=== PATIENT | female | born 2000 | race Caucasian/White ===

== ENCOUNTER 2021-06-25 14:43 | Observation (INO) | payer OTHER ==
[~2021-06-25] VITALS: Ht 154.9 cm; Wt 63.5 kg
[2021-06-26] MEDS ORDERED: fentaNYL CITRATE/PF 100 MCG/2 ML AMP ONE ×2 (02:10→07:26)
[2021-06-26] MEDS ORDERED: ROPIVACAINE HCL/PF 0.2% 0 ML ONE ×2 (02:11→07:26)
[2021-06-26] MEDS ORDERED: IBUPROFEN 600 MG TABLET ONE (17:57)
== END 2021-06-25 18:13 | disposition home or self-care (01) ==
LOC: SPU 14:43 → UNDODISOB 16:55
PROVIDERS: ADMIT Obstetrics & Gynecology; ATTEND Specialist
DX: O62.9 Abnormality of forces of labor, unspecified (principal); Z3A.38 38 weeks gestation of pregnancy
CPT/HCPCS: 81002; G0378; J3010

== ENCOUNTER 2021-06-26 00:43 | Inpatient (IN) | payer OTHER ==
[~2021-06-26] VITALS: Ht 154.9 cm; Wt 63.5 kg
[2021-06-26] MEDS ORDERED: AMPICILLIN SODIUM 2 GM in NS 100 ML IV ONE (01:30)
[2021-06-26] MEDS ORDERED: LR 1,000 ML IV ONE (01:30)
[2021-06-26] MEDS ORDERED: OXYTOCIN/0.9 % SODIUM CHLORIDE 1,000 ML IV SCH ×2 (01:30→16:45)
[2021-06-26] MEDS ORDERED: MORPHINE SULFATE 10 MG/ML VIAL IVP PRN (01:30)
[2021-06-26] MEDS ORDERED: NALOXONE HCL 0.4 MG/ML AMP (NARCAN) IVP PRN (01:30)
[2021-06-26] MEDS ORDERED: TERBUTALINE SULFATE 1 MG/ML VIAL SUBCUT ONE (01:30)
[2021-06-26 01:33] VITALS: BP_SYST 114
[2021-06-26 01:50] LABS: BASOPHILS # (AUTO) 0.1 K/uL (0.0-0.2); BASOPHILS % (AUTO) 0.4 % (0.0-2.0); HEMATOCRIT 35.6 % (36-48); HEMOGLOBIN 11.7 g/dL (12.0-16.0); LYMPHOCYTES # (AUTO) 1.9 K/uL (1.0-5.5); LYMPHOCYTES % (AUTO) 10.5 % (20.5-51.5); MEAN CORPUSCULAR HEMOGLOBIN 29 pg (27-31); MEAN CORPUSCULAR HGB CONC 33 % (32-36); MEAN CORPUSCULAR VOLUME 87 fL (79.0-98.0); MONOCYTES % (AUTO) 5.6 % (1.7-9.3); NEUTROPHILS # (AUTO) 14.8 K/uL (1.8-7.7); NEUTROPHILS % (AUTO) 83.5 % (40.0-70.0); PLATELET COUNT (AUTO) 219 K/uL (130-430); RED BLOOD CELL COUNT(AUTO) 4.08 MIL/uL (4.2-6.2); RED CELL DISTRIBUTION WIDTH 16.5 % (9.0-15.0); WHITE BLOOD COUNT (AUTO) 17.8 K/uL (4.5-11.0)
[2021-06-26] MEDS ORDERED: LR 500 ML IV ONE (03:00)
[2021-06-26] MEDS ORDERED: FENT2mCg/mL-ROPIVA0.2%/NS EPID 200 ML EP SCH (03:00)
[2021-06-26] MEDS ORDERED: AMPICILLIN SODIUM 2 GM VIAL ONE (03:11)
[2021-06-26] MEDS: LR 1,000 ML IV SCH ×2 (03:19→09:21)
[2021-06-26] MEDS ORDERED: ONDANSETRON HCL 4 MG/2 ML VIAL IVP PRN (05:30)
[2021-06-26] MEDS ORDERED: AMPICILLIN SODIUM 1 GM VIAL ONE (06:36)
[2021-06-26] MEDS ORDERED: ROPIVACAINE HCL/PF 0.2% 200 ML ONE (07:29)
[2021-06-26] MEDS ORDERED: fentaNYL CITRATE/PF 100 MCG/2 ML AMP ONE (07:29)
[2021-06-26] MEDS: AMPICILLIN SODIUM 1 GM in NS 50 ML IV SCH ×2 (11:09→15:02)
[2021-06-26] MEDS: CALCIUM CARBONATE 500 MG/ TAB.CHEW PO PRN ×2 (11:50→15:21)
[2021-06-26] MEDS ORDERED: NALOXONE HCL 0.4 MG/ML AMP (NARCAN) ONE (15:19)
[2021-06-26] MEDS ORDERED: LIGHT MINERAL OIL 10 ML VIAL MC ONE (15:19)
[2021-06-26] MEDS ORDERED: LIDOCAINE PF 1% 30ML(POUR BTL) INJ ONE (15:19)
[2021-06-26] MEDS ORDERED: MEASLES,MUMPS&RUBELLA VACC/PF 12500 UNIT/0.5 ML VIAL SUBQ PRN (16:45)
[2021-06-26] MEDS ORDERED: RHO(D) IMMUNE GLOBULIN/MALTOSE 1500 UNITS/1.3 ML (WINHRO) IM PRN (16:45)
[2021-06-26] MEDS ORDERED: WITCH HAZEL LEAF 1 MED.PAD MED.PAD TP PRN (16:45)
[2021-06-26] MEDS ORDERED: ANUSOL 1 EA SUPP.RECT (PREPARATION H) RC PRN (16:45)
[2021-06-26] MEDS ORDERED: OXYCODONE/ACETAMINOPHEN 5-325 TABLET PO PRN ×2 (16:45)
[2021-06-26] MEDS ORDERED: LANOLIN 7 GM OINT. TP PRN (16:45)
[2021-06-26] MEDS ORDERED: DERMOPLAST SPRAY TP PRN (16:45)
[2021-06-26] MEDS ORDERED: OXYTOCIN/0.9 % SODIUM CHLORIDE 1,000 ML IV ONE (16:45)
[2021-06-26] MEDS ORDERED: HYDROCORTISONE 0.5% CREAM 28.4 GM CREAM.GM. TP PRN (16:45)
[2021-06-26] MEDS ORDERED: HYDROcodone/ACETAMIN 5-325 MG TAB (NORCO/ VICODIN) PO PRN (16:45)
[2021-06-26] MEDS ORDERED: DIPH-TET-PERTUS Vaccine 0.5 ML VIAL (ADACEL) I.M. PRN (16:45)
[2021-06-26] MEDS: IBUPROFEN 600 MG TABLET PO SCH ×2 (18:29→23:58)
[2021-06-26] MEDS ORDERED: TEMAZEPAM 15 MG CAPSULE PO PRN (21:00)
[2021-06-27 06:40] LABS: HEMATOCRIT 26.6 % (36-48); HEMOGLOBIN 8.9 g/dL (12.0-16.0)
[2021-06-27] MEDS ORDERED: DOCUSATE SODIUM 100 MG CAPSULE PO SCH (09:00)
[2021-06-27] MEDS: IBUPROFEN 600 MG TABLET PO SCH ×3 (11:43→23:45)
[2021-06-27 20:00] VITALS: BP_SYST 107
[2021-06-28] MEDS: IBUPROFEN 600 MG TABLET PO SCH ×2 (06:04→11:52)
== END 2021-06-28 12:15 | disposition home or self-care (01) | DRG 560 ==
LOC: SPU 00:43
PROVIDERS: ADMIT Obstetrics & Gynecology; ATTEND Obstetrics & Gynecology
PROC: 10E0XZZ Delivery of Products of Conception, External Approach (ICD-10-PCS; principal; 2021-06-26)
PROC: 0HQ9XZZ Repair Perineum Skin, External Approach (ICD-10-PCS; 2021-06-26)
PROC: 3E0R3BZ Introduction of Anesthetic Agent into Spinal Canal, Percutaneous Approach (ICD-10-PCS; 2021-06-26)
PROC: 00HU33Z Insertion of Infusion Device into Spinal Canal, Percutaneous Approach (ICD-10-PCS; 2021-06-26)
DX: O69.81X0 Labor and delivery complicated by cord around neck, without compression, not applicable or unspecified (principal); Z37.0 Single live birth; O70.0 First degree perineal laceration during delivery; Z3A.39 39 weeks gestation of pregnancy; Z20.822 Contact with and (suspected) exposure to COVID-19
CPT/HCPCS: 36415; 81002; 85018; 85025; 86592; 86886; 86900; 86901; 94760; J0290; J2001; J2310; J2405; J2590; J3010